=== PATIENT | female | born 1950 | race Caucasian/White ===

== ENCOUNTER 2020-01-07 12:03 | Emergency (ER) | payer OTHER, SELFPAY ==
[2020-01-07 12:18] VITALS: BP 129/65; PULSE 95; RESP 18; TEMP 37.8; O2SAT 97
--- NOTE | 2020-01-07 12:42 | ED.SKABFB ---
HPI - Skin/Abscess/Foreign Bdy General Chief complaint: Skin/Abscess/Foreign Body Stated complaint: swollen right face Time Seen by Provider: 01/07/20 12:30 Source: patient Mode of arrival: ambulatory History of Present Illness HPI narrative: Yanira Callaway is a 69 yo female with a PMH of cardiomyopathy who comes to express care with severe right-sided pain behind and around right ear that has been going on for 5 days, taking ibuprofen for pain, is worsening Related Data Home Medications Medication Instructions Recorded Confirmed ezetimibe-simvastatin 1 tablet PO HS 01/07/20 01/07/20 irbesartan 01/07/20 Allergies Allergy/AdvReac Type Severity Reaction Status Date / Time No Known Allergies Allergy Verified 01/07/20 12:24 Review of Systems Review of Systems: Narrative: CONSTITUTIONAL: Denies fever, chills, sweats. EYES: Denies visual changes, redness, discharge. ENT: Denies rhinorrhea, congestion, sore throat, otalgia. Redness around right ear CARDIOVASCULAR: Denies chest pain, palpitations, edema. RESPIRATORY: Denies dyspnea, wheezing, cough GASTROINTESTINAL: Denies abdominal pain, nausea, vomiting, diarrhea. GENITOURINARY: Denies dysuria, hematuria, abnormal discharge SKIN: Denies rash or itching. NEUROLOGIC: Denies numbness, or focal weakness. PSYCHIATRIC: Denies anxiety or depression. PMFSH Family History Family History Other Hypertension Social History Social History (Updated 01/07/20 @ 12:45 by Bernice Guthrie CNP) Smoking status: Former smoker Comments At time of signature, I agree with nursing past medical, surgical, social and family history. There is no relevant family history pertinent to the presenting complaint. Exam Narrative: Exam Narrative: GENERAL: This is a well-nourished, well-developed patient, in severe distress. febrile HEAD: normocephalic, atraumatic. EYES:Sclera clear/white. Vision is grossly intact. EARS: External ears normal, auditory canals clear on L -erythema on right -red behind the ear and large solid mass around ear and base of ear pain is 10 out of 10. Hearing grossly intact. NOSE: External nose normal without nasal discharge, nares without redness, no rhinorrhea. THROAT: Mucous membranes moist, posterior pharynx NECK: Neck supple, non-tender CARDIOVASCULAR: Regular rate and rhythm without murmurs, gallops, or rubs. RESPIRATORY: Clear to auscultation. Breath sounds equal bilaterally. No wheezes, rales, or rhonchi. GASTROINTESTINAL: Abdomen soft, non-tender, SKIN: warm, intact with no suspicious lesions or rash, good texture and turgor. NEURO: awake, alert, and oriented to person, place and time. There were no obvious focal neurologic abnormalities. Steady gait EXTREMITIES: Normal range of motion. BACK: Nontender without deformity Course Course Emergency Course: Potential malignant external otitis or severe mastoiditis-called ED and patient to be transferred to [facility] Vital Signs Vital signs: Vital Signs Temperature 100.0 F H 01/07/20 12:18 Pulse Rate 95 01/07/20 12:18 Respiratory Rate 18 01/07/20 12:18 Blood Pressure 129/65 01/07/20 12:18 Pulse Oximetry 97 01/07/20 12:18 Temperature 100.0 F H 01/07/20 12:18 Pulse Rate 95 01/07/20 12:18 Respiratory Rate 18 01/07/20 12:18 Blood Pressure 129/65 01/07/20 12:18 Pulse Oximetry 97 01/07/20 12:18 MDM - Skin/Abscess/Foreign Bdy Differential Diagnosis Differential diagnosis: Likely abscess of skin or subcutaneous tissue and other (External otitis media versus severe mastoiditis) Discharge Plan Discharge Clinical Impression: External otitis of right ear Qualifiers: Otitis externa type: malignant Chronicity: acute Qualified Code(s): H60.21 - Malignant otitis externa, right ear Patient Disposition: Acute Care Hospital Condition: Stable Instructions: Antibiotic Form Prescriptions: No Action irbesartan
== END 2020-01-07 13:07 | disposition short-term general hospital (02) ==
PROVIDERS: Emergency Provider Nurse Practitioner; PCP Internal Medicine
DX: H60.21 Malignant otitis externa, right ear (principal); Z87.891 Personal history of nicotine dependence; E78.00 Pure hypercholesterolemia, unspecified; I10 Essential (primary) hypertension
CPT/HCPCS: 99202; G0463